=== PATIENT | male | born 1990 | race Caucasian/White ===

== ENCOUNTER → 2017-10-17 11:28 | Outpatient (CLI) | payer OTHER, SELFPAY ==
--- NOTE | 2017-10-17 11:32 | RAD_ITS ---
STUDY: X-RAY - RIGHT WRIST REASON FOR EXAM: Male, 27 years old. [place] a pop TECHNIQUE: 3 view(s) of the wrist were obtained. COMPARISON: None. FINDINGS: Normal visualized distal radius and ulna. Normal radiocarpal articulation. Normal distal radioulnar articulation. Normal carpal bones. Normal carpal articulations. Normal carpometacarpal articulation of the thumb. Normal second through fifth carpometacarpal articulations. Normal visualized metacarpal bones. The soft tissue structures are unremarkable. RAD/Wrist min 3 Views IMPRESSION: Normal x-ray examination of the wrist. Electronically Signed: Jose Armando Patrick MD at 6:38 EDT Tel , Service support ,
== END ==
PROVIDERS: Visit Provider Physician Assistant Surgical
DX: S66.911A Strain of unspecified muscle, fascia and tendon at wrist and hand level, right hand, initial encounter (principal); X58.XXXA Exposure to other specified factors, initial encounter; Y93.9 Activity, unspecified; Y92.9 Unspecified place or not applicable; Y99.9 Unspecified external cause status
CPT/HCPCS: 73110

== ENCOUNTER 2020-07-07 10:35 | Emergency (ER) | payer MEDICAID, SELFPAY ==
[2020-07-07 10:36] VITALS: BP 135/86; PULSE 87; RESP 16; TEMP 36.3; O2SAT 95; BMI 36.3
--- NOTE | 2020-07-07 10:52 | ED.DCSUM_ITS ---
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 Negative for: Vomiting - Diarrhea/Melena/Hematochezia GI Symptom: Negative for: Diarrhea, Melena, Hematochezia Associated Symptoms: Negative for: Dysuria, Frequency, Hematuria, Urgency Narrative: Healthy 29-year-old male started having acute onset of left flank pain that radiated across to his mid section abdomen about 40 minutes ago. Since paramedics gave him IV fentanyl his symptoms are resolved now. No urinary symptoms. Never had a kidney stone or the symptoms before. Indicates his left CVA area as focus of the pain that is no longer there. No recent injury. Prior similar symptoms: No Recent Illness/Hospitalization: No - Past Medical History (1) Asthma Status: Chronic Past Medical History - Allergies and Home Meds Allergies/Adverse Reactions: Allergies No Known Allergies Allergy (Verified 07/07/20 10:39) Primary Care Physician: Care Physician,No Primary [NON-STAFF] - Surgical History: - - BL ear tubes. Smoking Status: Former smoker - Family History Paternal Family History: Reports: No pertinent history Maternal Family History: Reports: No pertinent history Review of Systems General: Denies: Chills, Fever, Sweats Eyes: Denies: Visual changes - bilaterally, Diplopia ENT: Denies: Rhinorrhea, Sore throat Cardiovascular: Denies: Chest pain, Palpitations Respiratory: Denies: Dyspnea, Cough, Dyspnea on exertion Gastrointestinal: Reports: Abdominal pain, Nausea. Denies: Vomiting, Diarrhea, Melena, Hematochezia Genitourinary: Denies: Dysuria, Hematuria, Frequency Musculoskeletal: Reports: Back pain. Denies: Myalgias, Extremity Pain Skin: Denies: Rash, Wounds Neurological: Denies: Headache, Weakness, Numbness Physical Exam Vital Signs/Narrative: Vital Signs Temp Pulse Resp BP Pulse Ox 07/07/20 10:36 97.4 F L 87 16 135/86 H 95 Inital Vital Signs reviewed: Yes General: Well nourished, Well developed, No Acute Distress Head: Normocephalic, Atraumatic Eyes: Perrl, EOMI ENT: Moist mucous membranes, No rhinorrhea Neck: Supple, Nontender Cardiovascular: Regular rate, Regular rhythm, No murmurs Respiratory: No distress, CTA bilaterally, Chest nontender Abdomen: Soft, Nontender, Nondistended, Normal bowel sounds Back: Nontender, Normal Inspection. Negative for: CVA tenderness Extremities: Nontender, No edema Skin: Normal color, No rash, No Trauma Neurological: Alert, Oriented x3, Cranial nerves II-XII grossly intact, Normal Strength, Normal Sensation, Normal Gait Psychological: Normal affect, Normal Mood Diagnostic/Tx/Re-eval Laboratory Tests 07/07/20 Range/Units 11:18 Urine Color Yellow (Yellow) Urine Clarity Clear (Clear) Urine pH 6.0 (5.0 - 8.0) Ur Specific [place] 1.025 (1.002-1.030) Urine Protein 30 H (Negative) mg/dl Urine Glucose (UA) Normal (Normal) mg/dl Urine Ketones Negative (Negative) mg/dl Urine Occult Blood 250 H (Negative) /ul Urine Nitrite Negative (Negative) Urine Bilirubin Negative (Negative) mg/dL Urine Urobilinogen Normal (Normal) mg/dl Ur Leukocyte Esterase 25 H (Negative) /ul Urine RBC 25-50 SEEN (0-5) /hpf Urine WBC 0-5 SEEN (0-5) /hpf Ur Squamous Epith Cells 0 SEEN (0-5) /hpf Urine Bacteria 0 SEEN (None Seen) /hpf Urine Mucus 0 SEEN (<or=2+) /hpf - Medical Decision Making Patient urinated through a strainer but did not pass a stone. His urinalysis shows significant amount of microscopic hematuria. His symptoms are consistent with a kidney stone, he is healthy and has a normal exam, is asymptomatic, and given all that I do not think he needs further emergent work-up to look for anything else that could be dangerous. He likely has the stone retained in his bladder and will pass it at some point. He was given appropriate discharge instructions, urine strainers, and reasons to return. He is comfortable with that plan. ED Disposition - Plan for ED Patient: Disposition: Home or Assisted Living Diagnosis: Ureteral colic Instructions: ED Kidney Stone w/ Colic Referrals: Care Physician,No Primary [NON-STAFF] - Ana Laura Sanders [NON-STAFF] - As Needed
[2020-07-07 11:36] LABS: Bacteria 0 SEEN /hpf (None Seen); Mucous, Urine 0 SEEN /hpf (<or=2+); Squamous Epithelial Cells - UA 0 SEEN /hpf (0-5)
[2020-07-07 11:43] LABS: Color, Urine Yellow (Yellow); Glucose, Dipstick Normal (Normal); Ketone-Dipstick Negative (Negative); Leukocyte Esterase-Dipstick 25 /ul (Negative); Nitrite-Dipstick Negative (Negative); Occult Blood-Urine 250 /ul (Negative); Protein-Dipstick 30 mg/dl (Negative); Specific Gravity, Urine 1.025 (1.002-1.030); Urine Bilirubin Dipstick Negative (Negative); Urine Clarity Clear (Clear); Urine Urobilinogen Normal (Normal)
[2020-07-07 11:49] LABS: Red Blood Cells-Urine 25-50 SEEN /hpf (0-5); White Blood Cells 0-5 SEEN /hpf (0-5)
[2020-07-07 12:44] VITALS: PULSE 85; RESP 20
== END 2020-07-07 13:17 | disposition home or self-care (01) ==
PROVIDERS: Emergency Provider Emergency Medicine; PCP Internal Medicine
DX: N23 Unspecified renal colic (principal); Z87.891 Personal history of nicotine dependence
CPT/HCPCS: 81001; 99285

== ENCOUNTER 2021-06-25 08:23 | Emergency (ER) | payer OTHER, MEDICAID, SELFPAY ==
[2021-06-25 08:24] VITALS: BP 129/89; PULSE 94; RESP 15; TEMP 36.4; O2SAT 96; BMI 35.2
--- NOTE | 2021-06-25 08:37 | RAD_ITS ---
STUDY: X-RAY - LUMBAR SPINE REASON FOR EXAM: Male, 30 years old. Injury/Pain TECHNIQUE: 3 view(s) of the lumbar spine were obtained. COMPARISON: None FINDINGS: Normal lumbar lordosis. There is no substantial scoliosis. There is a normal alignment of the vertebrae. Normal vertebral bodies and endplates. Normal disc space heights. The soft tissue structures are unremarkable. RAD/Lumbar Spine 2 or 3 Views IMPRESSION: Normal x-ray examination of the lumbar spine. Electronically Signed: Shan Hawkins MD at 9:48 EST , Service support ,
--- NOTE | 2021-06-25 08:38 | EDS_ITS ---
HPI History of Present Illness Chief Complaint: Back Informant: patient Onset/Context/Timing Onset: Yesterday Context: Gradual Onset Injury: lifting Timing: Continuous Quality: Sharp Location: Lumbar, Buttock, Right Leg and Left Leg Current Severity: Severe Maximum Severity: Severe Worsened by: improves with Movement and Ambulation Relieved by: Nothing Associated Symptoms Associated Symptoms: Radiation to Right Leg and Radiation to Left Leg; Negative for Numbness, Tingling, Fever, Abdominal Pain, Dysuria, Urinary Retention, Urinary Incontinence, Constipation and Fecal Incontinence Narrative Narrative: Patient presents with back pain that began yesterday after lifting a steel desk. Patient states it is gradually gotten worse. Patient states when he woke up today his pain was worse. Patient describes the pain as sharp. Patient states pain is over the lower lumbar area. Patient states the pain radiates into his buttocks and bilateral lower extremities. Patient states his pain is worse with standing and ambulation. Patient states nothing seems to help with the pain. Patient denies any bowel or bladder changes. Patient denies any saddle anesthesia. [facility] Medical History (Updated 06/25/21 @ 10:[address] Trev Arrington DO) Asthma Home Medications diazepam 5 mg PO QHS PRN PRN #10 tab 06/25/21 [Rx Last Taken Unknown] naproxen 500 mg PO BID PRN #20 tab 06/25/21 [Rx Last Taken Unknown] Allergy/AdvReac Type Severity Reaction Status Date / Time No Known Allergies Allergy Verified 06/25/21 08:26 Social History (Updated 06/25/21 @ 08:[address] Trev Arrington DO) Smoking Status: Heavy Smoker (>10/day) alcohol intake: never ROS ROS ED Constitutional Constitutional ED: Denies chills or fever(s) Eyes Eyes: Denies blurry vision or change in vision ENT ENT ED: Denies rhinorrhea or sore throat Cardiovascular Cardiovascular: Denies chest pain or palpitations Respiratory/Chest Respiratory/Chest: Denies cough or dyspnea Gastrointestinal Gastrointestinal: Denies nausea or vomiting Genitourinary Genitourinary ED: Denies dysuria or hematuria Musculoskeletal Musculoskeletal: Reports back pain; Denies neck pain Integumentary Denies abscess or rash Neurologic Neurologic: Denies headache(s) or weakness Allergic/Immunologic Allergic/Immunologic ED: Denies mouth swelling or urticaria EXAM Physical Exam Const Vital Signs: 06/25/21 08:24 Temperature 97.6 F L Temperature Source Temporal Pulse Rate 94 Respiratory Rate 15 Blood Pressure 129/89 H Blood Pressure Mean 102 Pulse Ox 96 Oxygen Delivery Method Room Air Positive well nourished, well developed and obese General Appearance ED: well developed Nutritional Appearance: obese HEENT Reports moist mucous membranes Neck supple GI normal to inspection, nondistended, normoactive bowel sounds, soft to palpation and non-tender Back/Spine Back/Spine Narrative: There is tenderness and spasm of the lower lumbar paraspinal muscles. There is some mild midline tenderness. There is no bony crepitance or step-off. Range of motion was limited in all motions of the lumbar spine secondary to pain. Strength is 5/5 bilaterally in the lower extremities. There are no sensory deficits noted. Posterior tibial pulses are equal bilaterally. Lumbar Spine / Lower Back: ROM limited Extremity normal to inspection General Extremety ED: Negative for edema General Extremity: Negative for edema Neuro oriented x3 and no sensory deficits noted Sensorium / Orientation: alert Motor Exam: strength 5/5 throughout MDM MDM MDM Narrative Medical decision making narrative: Patient was given injections of Toradol and Norflex here. X-rays of the lumbar spine were obtained. There are 3 views. On my interpretation, there is no acute fracture or spondylolisthesis. Radiologist also interpreted the x-rays and agrees. Patient is feeling better on reevaluation. Patient was given prescriptions for Naprosyn and Valium. Patient was instructed to follow-up with his primary care physician in 5 to 7 days. Patient understood and was agreeable with the plan. All questions were answered. Radiography Diagnostic Testing: Clinical Impression(s) from Imaging Studies Lumbar Spine X-Ray 06/25/21 08:37 IMPRESSION: Normal x-ray examination of the lumbar spine. Electronically Signed: Shan Hawkins MD at 9:48 EST , Service support , Discharge Plan Triage Chief Complaint: Back ED Provider: Trev Arrington Dx/Rx/DC Orders Clinical Impression: Acute lumbosacral myofascial strain Instructions: ED Back Sprain/Strain, ED Back and Neck Pain, General Prescriptions: New naproxen 500 MG tablet 500 mg PO BID PRN Qty: 20 RF: 0 diazepam [diazepam] 5 MG tablet 5 mg PO QHS PRN PRN (Reason: muscle spasm) Qty: 10 RF: 0 Primary Care Provider: Saranya Anand Referrals: Saranya Anand DO [Primary Care Provider] - 3-5 Days Disposition Disposition: Home, Self Care
[2021-06-25] MEDS: Orphenadrine 60 MG/2 ML Ampul IM (09:13)
[2021-06-25] MEDS: Ketorolac 60 MG/2 ML Vial IM (09:13)
[2021-06-25 10:20] VITALS: BP 124/77; PULSE 62; RESP 15; O2SAT 98
== END 2021-06-25 10:21 | disposition home or self-care (01) ==
PROVIDERS: Emergency Provider Emergency Medicine; PCP Internal Medicine
DX: S39.012A Strain of muscle, fascia and tendon of lower back, initial encounter (principal); X50.0XXA Overexertion from strenuous movement or load, initial encounter; Y93.89 Activity, other specified; Y92.9 Unspecified place or not applicable; Y99.0 Civilian activity done for income or pay; F17.200 Nicotine dependence, unspecified, uncomplicated
CPT/HCPCS: 72100; 96372; 99284